=== PATIENT | female | born 1975 | race Two or more races ===

== ENCOUNTER → 2024-08-05 | Outpatient (CLI) | payer MEDICAID, SELFPAY ==
--- NOTE | 2024-08-05 09:00 | XR_ITS ---
Examination: Breast ultrasound complete, bilateral Date and time of exam: August 05, 2024 0900 hours Comparison 02/10/2024 INDICATIONS: Mammogram 02/10/2024 focal asymmetry left breast lower inner left breast, left breast sonogram 02/10/2024 right breast 1:00 nodule 6 mm left breast 2:00 nodule 9 mm nodule o'clock nodule 8 mm Technique: Real-time grayscale ultrasonographic imaging bilateral breasts, including all 4 quadrants as well as nipple retroareolar and axillary regions. Findings: Sonographic images right breast 1:00 nodule circumscribed 6 x 6 mm 7:00 nodule circumscribed 8 x 7 mm Sonographic images left breast 2:00 nodule circumscribed 9 x 9 mm 8:00 nodule lobular margins 7 x 7 mm 9:00 nodule circumscribed 9 x 9 mm 10:00 cyst 8 x 10 mm 11:00 solid nodule lobular margins 6 x 6 mm IMPRESSION: BI-RADS Category 3: Probably benign findings. One additional 6 month left breast sonogram follow-up is needed to document stability of multiple solid left breast nodules described above
== END | disposition home or self-care (01) ==
PROVIDERS: PCP Obstetrics & Gynecology; Referring Provider Obstetrics & Gynecology; Visit Provider Obstetrics & Gynecology
DX: N63.25 Unspecified lump in the left breast, overlapping quadrants (principal); N63.22 Unspecified lump in the left breast, upper inner quadrant; N63.12 Unspecified lump in the right breast, upper inner quadrant; N63.24 Unspecified lump in the left breast, lower inner quadrant; N63.21 Unspecified lump in the left breast, upper outer quadrant; N63.23 Unspecified lump in the left breast, lower outer quadrant
CPT/HCPCS: 76641